=== PATIENT | male | born 1960 | race Caucasian/White ===

== ENCOUNTER → 2023-11-22 06:28 | Day surgery (SDC) | payer BC, OTHER, SELFPAY | LOC: GI 06:28 | PROVIDERS: ATTENDING PHYSICIAN Internal Medicine | DX: R13.10 Dysphagia, unspecified (principal); K44.9 Diaphragmatic hernia without obstruction or gangrene; K22.89 Other specified disease of esophagus; K22.2 Esophageal obstruction | CPT/HCPCS: 43248; 43239; 88305 ==

== ENCOUNTER → 2024-04-04 08:04 | Outpatient (REF) | payer OTHER, SELFPAY | LOC: RCS 08:04 | PROVIDERS: ATTENDING PHYSICIAN Internal Medicine Cardiovascular Disease; FAMILY PHYSICIAN Internal Medicine | DX: I10 Essential (primary) hypertension (principal); R06.02 Shortness of breath; R53.83 Other fatigue | CPT/HCPCS: 93306 ==

== ENCOUNTER → 2024-04-09 07:44 | Outpatient (REF) | payer OTHER, SELFPAY | LOC: DHCBC/DCA 07:44 | PROVIDERS: ATTENDING PHYSICIAN Internal Medicine Cardiovascular Disease; FAMILY PHYSICIAN Internal Medicine | DX: I10 Essential (primary) hypertension (principal); R06.02 Shortness of breath; R53.83 Other fatigue | CPT/HCPCS: 78452; 93017; A9500; J2785 ==

== ENCOUNTER → 2024-07-29 13:02 | Outpatient (REF) | payer OTHER, SELFPAY ==
[2024-07-29 13:24] VITALS: BP 137/82; BP_SYST 77
== END ==
LOC: RADI 13:02
PROVIDERS: ATTENDING PHYSICIAN Internal Medicine Hematology & Oncology; FAMILY PHYSICIAN Internal Medicine
DX: Z45.2 Encounter for adjustment and management of vascular access device (principal); C17.1 Malignant neoplasm of jejunum
CPT/HCPCS: 36590; 77001

== ENCOUNTER 2024-12-09 19:44 | Emergency (ER) | payer OTHER, SELFPAY ==
[2024-12-09 19:46] VITALS: BP 145/88; BMI 33.7
[2024-12-09 20:00] VITALS: BP 140/87
[2024-12-09 20:18] LABS: % Basophils 0.9 % (0-2); % Eosinophils 1.7 % (0-6); % Immature Granulocytes 1.1 % (0-0.5); % Lymphocytes 35.8 % (20.5-51.1); % Monocytes 7.2 % (1.7-9.3); % Neutrophils 53.3 % (42.2-75.2); Absolute Basophils 0.1 10^3/uL (0-0.2); Absolute Eosinophils 0.1 10^3/uL (0-0.7); Absolute Immature Granulocytes 0.1 10^3/uL (0-0.05); Absolute Lymphocytes 2.3 10^3/uL (1.2-3.4); Absolute Monocytes 0.5 10^3/uL (0.1-0.6); Absolute Neutrophils 3.4 10^3/uL (1.4-6.5); Hematocrit 48.6 % (39.0-52.0); Hemoglobin 17.4 g/dL (13.0-18.0); Mean Corp Hgb Conc. 35.8 g/dL (33.0-37.0); Mean Corpuscular Hgb 29.6 pg (27.0-31.0); Mean Corpuscular Volume 82.8 fL (80.0-94.0); Nucleated Red Blood Cells % 0 % (-); Platelet Count 224 10^3/uL (130-400); Red Blood Cell Count 5.87 10^6/uL (4.70-6.10); Red Cell Dist. Width 12.9 % (11.5-14.5); White Blood Cell Count 6.4 10^3/uL (4.8-10.8)
[2024-12-09 20:32] LABS: ALT (SGPT) 33 U/L (0-50); AST (SGOT) 34 U/L (17-59); Albumin 4.6 g/dl (3.5-5.0); Alkaline Phosphatase 114 U/L (38-126); Blood Urea Nitrogen 10 mg/dl (9-20); Carbon Dioxide 28 mmol/L (22-30); Chloride 103 mmol/L (98-107); Estimated Creatinine Clearance 124 ml/min; Glucose 111 mg/dl (70-99); Potassium 4.3 mmol/L (3.5-5.1); Sodium 145 mmol/L (135-145); Total Bilirubin 0.6 mg/dl (0.2-1.3); Total Protein 7.7 g/dl (6.3-8.2); eGFR > 60.00
[2024-12-09 20:42] LABS: Alcohol 361 mg/dl
--- NOTE | 2024-12-09 21:40 | ED.GENMED ---
History of Present Illness
<Ad Munoz PA-C - Last Filed: 12/10/24 15:30>
General
Chief Complaint: Alcohol Problem
Time Seen by Provider: 12/09/24 19:51
History of Present Illness
History of Present Illness:
64-year-old male presents emergency department for evaluation of alcohol intoxication. states that he has been drinking heavily for the past 5 days. She had a fall upstairs and found him on the ground this evening thus prompting 911 call. On
arrival the patient is alert, intoxicated, with unintelligible speech.
Past History
<Ad Munoz PA-C - Last Filed: 12/10/24 15:30>
Past History
ED Past Medical History: Asthma, Cancer (Skin, Small bowel CA), GERD, HTN and Other (Intermittent chronic neck pain with tingling in the fingers of both hands intermittently. PNA, Ulcers)
ED Past Surgical History: None and Bowel resection
Social History
Tobacco: Non-smoker
Alcohol: Occasional (wine 1 bottle)
Personal:
Living: with family
Employment: Employed
Family History
Family History: Other (Father with lung cancer); Negative Early CAD
Review of Systems
<Ad Munoz PA-C - Last Filed: 12/10/24 15:30>
Review of Systems
Allergies reviewed?: Yes
All Other Systems: ROS reviewed and negative except as documented in HPI and ROS
Phy Exam
<KARRIE Javed Last Filed: 12/10/24 15:30>
Physical Exam
Physical Exam:
GEN: Well appearing, NAD, WDWN
Eyes: PERRLA, EOMs intact, no scleral icterus
HENT: NCAT, oral mucosa moist
Lungs: CTAB, no wheezes, rales, rhonchi, normal chest wall excursion
Cardiac: RRR, no M/R/G, no peripheral edema. Radial pulses 2+ bilat
Abdomen: S, NT, ND, NABS, no masses or hepatosplenomegaly
Neuro: Alert, intermittently follows commands unintelligible speech
MSK: No gross deformity or ecchymosis.
Skin: No rashes, petechiae. Normal color, no pallor or jaundice.
Psych: Calm, cooperative, proper hygiene
Scores
<Ad Muonz PA-C - Last Filed: 12/10/24 15:30>
Withdrawal Assessment of Alcohol
Withdrawal Assessment Completed?: Not applicable
Course
<Ad Munoz PA-C - Last Filed: 12/10/24 15:30>
Orders/Labs/Results
Orders:
Orders
12/09/24 20:08
CT Head W/o Iv Contrast Urgent
Comment:
Reason For Exam: fall
12/09/24 20:12
Alcohol Urgent
Complete Blood Count/With Diff Urgent
Comprehensive Metabolic Panel Urgent
12/10/24 04:15
Ibuprofen [Motrin] 600 mg .ROUTE .STK-MED ONE
12/10/24 04:16
Ibuprofen [Motrin] 600 mg PO NOW STA
Abnormal Lab Results
12/09/24
20:12
Abs Immat Gran (auto) 0.1 H 10^3/uL
(0-0.05)
Immature Gran % 1.1 H %
(0-0.5)
Glucose 111 H mg/dl
(70-99)
12/09/24 20:12
12/09/24 20:12
Vital Signs
Initial and Last Documented VS:
Initial Vital Signs
Temp Pulse Resp BP Pulse Ox
98.8 F 88 18 145/88 97
12/09/24 19:46 12/09/24 19:46 12/09/24 19:46 12/09/24 19:46 12/09/24 19:46
Last Documented Vital Signs
Temp Pulse Resp BP Pulse Ox
98.2 F 92 20 139/82 97
12/10/24 06:14 12/10/24 11:00 12/10/24 11:00 12/10/24 11:00 12/10/24 11:00
<Masood Alfred, DO - Last Filed: 12/10/24 04:40>
Orders/Labs/Results
Orders:
Orders
12/09/24 20:08
CT Head W/o Iv Contrast Urgent
Comment:
Reason For Exam: fall
12/09/24 20:12
Alcohol Urgent
Complete Blood Count/With Diff Urgent
Comprehensive Metabolic Panel Urgent
12/10/24 04:15
Ibuprofen [Motrin] 600 mg .ROUTE .STK-MED ONE
12/10/24 04:16
Ibuprofen [Motrin] 600 mg PO NOW STA
Abnormal Lab Results
12/09/24
20:12
Abs Immat Gran (auto) 0.1 H 10^3/uL
(0-0.05)
Immature Gran % 1.1 H %
(0-0.5)
Glucose 111 H mg/dl
(70-99)
12/09/24 20:12
12/09/24 20:12
Vital Signs
Initial and Last Documented VS:
Initial Vital Signs
Temp Pulse Resp BP Pulse Ox
98.8 F 88 18 145/88 97
12/09/24 19:46 12/09/24 19:46 12/09/24 19:46 12/09/24 19:46 12/09/24 19:46
Last Documented Vital Signs
Temp Pulse Resp BP Pulse Ox
98.2 F 92 20 139/82 97
12/10/24 06:14 12/10/24 11:00 12/10/24 11:00 12/10/24 11:00 12/10/24 11:00
<Ad Munoz PA-C - Last Filed: 12/10/24 15:30>
MDM/Problems Addressed
MDM/Problems Addressed:
CT of the head is unremarkable. Patient is markedly intoxicated evidence of alcohol level greater than 360. Unfortunately patient was verbally abusive toward his spouse and requested that she leave the emergency department. He will remain in the
ER awaiting sobriety and further discussion at that time to determine if the patient was interested in alcohol cessation resources
<Ad Munoz PA-C - Last Filed: 12/10/24 15:30>
*Critical Care Note
Total Time (30-74mins, 75-104mins- exclusive of procedures): Not Applicable
<Masood Alfred DO - Last Filed: 12/10/24 04:40>
Update Note
Update Note:
Patient up and ambulating around the department
ED Attending Note
<Ad Munoz PA-C - Last Filed: 12/10/24 15:30>
-
Portions of this chart may have been created with voice recognition software.� Occasional wrong word or��sound alike� substitutions may have occurred due to the inherent limitations of voice recognition software.
Discharge Plan
Departure
Patient Disposition: Home (Routine Discharge)
Date of Disposition: 12/10/24
Time of Disposition: 06:39
Patient with high blood pressure during this ER visit?: Yes
Condition: Good
Discharge Problem:
Alcohol intoxication
Instructions: Alcohol Use Disorder (DC), Binge Drinking, BLOOD PRESSURE
Prescriptions:
No Action
losartan 100 mg Tablet
100 mg PO DAILY
cyanocobalamin (vitamin B-12) 1,000 mcg Tablet
1,000 mcg PO DAILY Qty: 0
ascorbic acid (vitamin C) 500 mg Tablet
500 mg PO DAILY Qty: 0
ferrous sulfate 325 mg (65 mg iron) Tablet
325 mg PO DAILY Qty: 0
cholecalciferol (vitamin D3) 25 mcg (1,000 unit) Tablet
25 mcg PO DAILY Qty: 0
ondansetron HCl 8 mg tablet
8 mg PO Q8HPRN PRN (Reason: nausea)
prochlorperazine maleate 10 mg tablet
10 mg PO Q6HPRN PRN (Reason: nausea)
famotidine 20 mg Tablet
20 mg PO BID
escitalopram oxalate 10 mg Tablet
10 mg PO DAILY
coenzyme Q10 [CoQ-10] 100 mg Capsule
100 mg PO DAILY
turmeric 400 mg Capsule
400 mg PO DAILY
Xeloda
1 dose PO UD
Rx Instructions:
per patient two week son one week off - was supposed to restart
Referrals:
UNKNOWN - PT DOES,NOT KNOW [Family Provider] -
Interventions
Interventions:
*Risk Screen - Suicide Last Done: 12/09/24 19:46
*General Assessment Last Done: 12/09/24 19:46
*Neglect/Abuse Screening Last Done: 12/09/24 19:46
*ED COVID-19 Vaccine History Last Done: 12/09/24 19:46
*Nursing Disposition Last Done: 12/10/24 12:29
ED-Musculoskeletal Assessment Last Done: 12/09/24 19:57
ED- Neurological Assessment Last Done: 12/09/24 19:57
ED-Psychological Assessment Last Done: 12/09/24 19:57
ED-Skin Assessment Last Done: 12/09/24 19:57
Discharge Date and Time
Discharge Date/Time: 12/10/24 12:31
Print Language: AMERICAN
[2024-12-09 22:00] VITALS: BP 179/97
[2024-12-09 23:00] VITALS: BP 166/102
[2024-12-10] VITALS (7 sets, daily range): BP systolic 117–139; BP diastolic 60–87
[2024-12-10] MEDS: MOTRIN 600 MG PO (04:16)
== END 2024-12-10 12:31 | disposition home or self-care (01) ==
LOC: EMR 19:44
PROVIDERS: Physician Assistant; EMERGENCY PHYSICIAN Emergency Medicine
DX: F10.129 Alcohol abuse with intoxication, unspecified (principal); Y90.8 Blood alcohol level of 240 mg/100 ml or more; W19.XXXA Unspecified fall, initial encounter; I10 Essential (primary) hypertension; K21.9 Gastro-esophageal reflux disease without esophagitis; J45.909 Unspecified asthma, uncomplicated; M54.2 Cervicalgia; G89.29 Other chronic pain; Z85.068 Personal history of other malignant neoplasm of small intestine; Z85.828 Personal history of other malignant neoplasm of skin; Z87.01 Personal history of pneumonia (recurrent)
CPT/HCPCS: 99284; 70450; 80053; 82077; 85025